=== PATIENT | male | born 1935 | race Caucasian/White ===

== ENCOUNTER 2016-11-18 16:13 | Emergency (ER) | payer OTHER ==
[2016-11-18 16:30] VITALS: BMI 24.3
[2016-11-18 17:01] LABS: BASOPHILS % (AUTO) 0.8 % (0.0-3.0); EOSINOPHILS # (AUTO) 0.1 K/ul (0.0-0.7); EOSINOPHILS % (AUTO) 1.9 % (0.0-7.0); HEMOGLOBIN 12.3 g/dl (14.0-18.0); IMMATURE GRANULOCYTE % (AUTO) 1.5 % (0.0-5.0); LYMPHOCYTES # (AUTO) 0.1 K/uL (0.60-3.4); LYMPHOCYTES % (AUTO) 3.4 (10.0-50.0); MEAN CORPUSCULAR HEMOGLOBIN 34.6 pg (27.0-31.0); MEAN CORPUSCULAR HGB CONC 35.1 (31.8-35.4); MEAN CORPUSCULAR VOLUME 98.6 fl (80.0-94.0); MONOCYTES % (AUTO) 0.4 (0-10); NEUTROPHILS # (AUTO) 2.4 K/ul (2.0-6.9); PLATELET COUNT 152 10^3/uL (140-440); RED BLOOD COUNT 3.55 10^6/ul (4.70-6.10); WHITE BLOOD COUNT 2.62 K/ul (4.2-10.2)
[2016-11-18 17:23] LABS: ALBUMIN 3.8 g/dL (3.4-5.0); ALBUMIN/GLOBULIN RATIO 1.23; ANION GAP 16.2; BILIRUBIN,TOTAL 1.19 mg/dL (0.00-1.20); BUN/CREATININE RATIO 14.13; CALCIUM 9.3 mg/dL (8.2-10.2); CREATININE 0.92 mg/dL (0.60-1.10); POTASSIUM 4.2 mmol/L (3.5-5.1); TOTAL PROTEIN 6.9 g/dL (5.8-8.1)
[2016-11-18 17:30] LABS: TROPONIN I 0.046 ng/ml (0.0000-0.4000)
[2016-11-18] MEDS ORDERED: URO-JET MUCOUSMEMB STA (17:30)
--- NOTE | 2016-11-18 17:55 | CT ---
EXAM: CT chest without contrast HISTORY: Cough TECHNIQUE: Multi-slice transaxial helical. Coronal and sagital reformations were performed. COMPARISON: None FINDINGS: The heart is normal in size. Coronary artery calcifications are present. The ascending aorta measu res up to 37 mm in diameter. Calcified plaques are present within the thoracic aorta. No evidence of mediastinal adenopathy is seen. Visualized thyroid appears unremarkable. There is no axillary adenopathy. Please see same day ab[facility] report for abdominal findings. Old anterior right-sided rib fractures are present. There is b ridging anterior osteophytosis of the thoracic spine. Minimal compression changes of T4 and T12 is present. No evidence of listhesis. Bibasilar dependent atelectasis is present. Right lower lobe calcified granuloma is present. Right upper lobe calcified granuloma is present. No evidence of focal airspace opacity, pleural effusion , or pneumothorax. IMPRESSION: 1. No acute cardiopulmonary findings. No evidence of pneumonia. 2. Bibasilar dependent atelectasis. 3. Atherosclerosis including coronary disease. 4. 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 5. Minimal compression deformities of T4 and T12.
--- NOTE | 2016-11-18 18:01 | CT ---
EXAM: Noncontrast CT of the abdomen and pelvis HISTORY: Pain COMPARISON: None available TECHNIQUE: Noncontrast CT of the abdomen and pelvis FINDINGS: The artifacts extend through the upper abdomen due to imaging with the patient's arms over his abdom en. Noncontrast technique limits evaluation of abdominal viscera. The liver and spleen appear gross ly within normal limits. The gallbladder is contracted. The unenhanced adrenals are unremarkable. There is mild bilateral perinephric fat stranding. The unenhanced pancreas is grossly unremarkable. No renal, ureteral or bladder calculi are identified. There is minimal distal left ureteral dilati on. No abnormal small bowel dilation is seen. Diverticulosis seen without evidence of diverticulitis. T he appendix is not identified. No pericecal inflammatory changes are seen. Several bladder diverticuli are seen. There is mild bladder wall thickening. Prostate calcification s are present. Extensive atherosclerotic calcifications are present including the coronary arteries . No free air or free fluid is seen. There is mild to moderate multilevel degenerative disc disease and multilevel facet arthropathy which is up to severe at L4-5. There is 2 mm of anterolisthesis at L4-5. There is mild remote appearing anterior wedging of the T11 vertebral body. Please see chest CT report for chest findings. IMPRESSION: No evidence of urolithiasis. Mild bilateral perinephric fat stranding which could be chronic or indicative of inflammation/infect ion. Diverticulosis without evidence of diverticulitis. Mild bladder wall thickening which could be chronic. Cystitis would be difficult to completely exclu de. Multiple bladder diverticuli. Extensive atherosclerosis including the coronary arteries. Noncontrast exam.
[2016-11-18 18:23] LABS: BILIRUBIN,URINE Negative (NEGATIVE); KETONES,URINE Negative (NEGATIVE); LEUKOCYTE ESTERASE ,URINE 3+ (NEGATIVE); NITRITE,URINE Negative (NEGATIVE); PROTEIN,URINE Trace (NEGATIVE); URINE, BLOOD Trace-lysed (NEGATIVE)
--- NOTE | 2016-11-18 18:34 | ED.PDOC ---
General Mode of Arrival: Wheelchair Information Source: Patient <PAVITHRA LUJAN Filed: 11/18/16 18:32> <JADA HUITRON - Last Filed: 11/18/16 18:47> ED Provider: Dr. JADA SANCHEZ-MANASA Chief Complaint: Urinary Problem Primary Care Provider: JADA SANCHEZ Miscellaneous Complaint Exam - Febrile Illness/Adult Complaint/Exam Onset/Duration: 2 days Symptoms Are: Still present Timing: Intermittent Initial Severity: Mild Current Severity: Mild Aggravating: Reports: Other (prostate cancer ) Associated Signs and Symptoms: Denies: Headache, Fluid intake, Short of air, Cough, Sore throat, Nausea, Vomiting, Chills, Diaphoresis, Dysuria, Arthralgia, Stiff neck, Myalgia, Rash, Altered mental status Pseudomonas Risk Factors: Reports: None Serious Bacterial Infection Risk Factors: Reports: None Current Antibiotic Use: No <PAVITHRA LUJAN Filed: 11/18/16 18:32> Review of Systems - Review Of Systems Constitutional: Reports: Fever, Malaise Eyes: Reports: No symptoms Ears, Nose, Mouth, Throat: Reports: No symptoms Respiratory: Reports: No symptoms Cardiac: Reports: No symptoms GI: Reports: No symptoms : Reports: No symptoms Musculoskeletal: Reports: No symptoms Skin: Reports: No symptoms Neurological: Reports: No symptoms Endocrine: Reports: No symptoms Hematologic/Lymphatic: Reports: No symptoms All Other Systems: Reviewed and Negative <PAVITHRA LUJAN Filed: 11/18/16 18:32> Past Medical History - Social History Smoking Status: Never smoker Hx Substance Use: No Alcohol Screening: None <PAVITHRA LUJAN Filed: 11/18/16 18:32> Physical Exam - Physical Exam Appearance: Ill-appearing Ill-appearing: Moderate Pain Distress: Moderate Eyes: SANIYA, EOMI, Conjunctiva clear ENT: Dry mucosa Respiratory: Airway patent, Breath sounds clear, Breath sounds equal, Respirations nonlabored Cardiovascular: RRR, Pulses normal, No rub, No murmur GI/: Soft, Nontender, No masses, Bowel sounds normal, No Organomegaly Musculoskeletal: Normal strength, ROM intact, No edema, No calf tenderness Skin: Warm, Dry, Normal color Neurological: Sensation intact, Motor intact, Reflexes intact, Cranial nerves intact, Alert, Oriented Psychiatric: Affect appropriate, Mood appropriate <PAVITHRA LUJAN - Last Filed: 11/18/16 18:32> Critical Care Note - Critical Care Note Total Time (mins): 0 <PAVITHRA LUJAN - Last Filed: 11/18/16 18:32> Course - Course Hematology/Chemistry: 11/18/16 16:50 11/18/16 16:50 <PAVITHRA LUJAN - Last Filed: 11/18/16 18:32> - Course Hematology/Chemistry: 11/18/16 16:50 11/18/16 16:50 <JADA HUITRON - Last Filed: 11/18/16 18:47> - Course Orders, Labs, Meds: Lab Review 11/18/16 11/18/16 16:50 18:15 WBC 2.62 L RBC 3.55 L Hgb 12.3 L Hct 35.0 L MCV 98.6 H MCH 34.6 H MCHC 35.1 RDW Coeff of Red 12.2 Plt Count 152 Immature Gran % (Auto) 1.5 Neut % (Auto) 92.0 Lymph % (Auto) 3.4 L [place] % (Auto) 0.4 Eos % (Auto) 1.9 Baso % (Auto) 0.8 Immature Gran # (Auto) 0.0 Neut # 2.4 Lymph # 0.1 L [place] # 0.0 L Eos # 0.1 Baso # 0.0 Sodium 134 L Potassium 4.2 Chloride 98 Carbon Dioxide 24 Anion Gap 16.2 BUN 13 Creatinine 0.92 Estimated GFR (MDRD) 79.00 BUN/Creatinine Ratio 14.13 Glucose 110 Lactic Acid 24.7 H Calcium 9.3 Total Bilirubin 1.19 AST 19 ALT 13 Alkaline Phosphatase 81 Total Creatine Kinase 99 Troponin I 0.0460 Total Protein 6.9 Albumin 3.8 Globulin 3.1 Albumin/Globulin Ratio 1.23 Procalcitonin 3.37 Urine Color Yellow Urine Clarity Clear Urine pH 7.0 Ur Specific [place] 1.015 Urine Protein Trace Urine Glucose (UA) Negative Urine Ketones Negative Urine Blood Trace-lysed Urine Nitrite Negative Urine Bilirubin Negative Urine Urobilinogen 0.2 Ur Leukocyte Esterase 3+ Urine Microscopic RBC 2-5 Urine Microscopic WBC 30-50 Ur Squamous Epith Cells Not present Urine Bacteria 2+ Urine Yeast Trace Orders Category Date Time Status EKG-(ED ONLY) Stat CARDIO 11/18/16 16:44 Completed Lora [ED CATHETER INSERTION AND CARE] .ONCE EMERGENCY 11/18/16 17:30 Active BLOOD CULTURE Stat LAB 11/18/16 16:50 Received CBC W/ AUTO DIFF Stat LAB 11/18/16 16:50 Completed COMPREHENSIVE METABOLIC PANEL Stat LAB 11/18/16 16:50 Completed CREATINE KINASE Stat LAB 11/18/16 16:50 Completed EHRLICHIA DNA, PCR Stat LAB 11/18/16 16:50 Received LACTIC ACID Stat LAB 11/18/16 16:50 Completed LYME, WESTERN BLOT, SERUM Stat LAB 11/18/16 16:50 Received PROCALCITONIN Stat LAB 11/18/16 16:50 Completed MATIAS MTN SPOTTED FEVER,IgM Stat LAB 11/18/16 16:50 Received TROPONIN I Stat LAB 11/18/16 16:50 Completed URINALYSIS C & S IF INDICATED Stat LAB 11/18/16 18:15 Completed URINE CULTURE Stat LAB 11/18/16 18:15 Received Lidocaine HCl [Uro-Jet] MEDS 11/18/16 17:30 Discontinued 10 ml [id number] ONCE STA CT ABDOMEN/PELVIS WO CONTRAST Stat RADS 11/18/16 16:[address] CHEST W/O CONTRAST Stat RADS 11/18/16 16:43 Completed Medications Discontinued Medications Generic Name Dose Route Start Last Admin Trade Name Freq PRN Reason Stop Dose Admin Lidocaine HCl 10 ml 11/18/16 17:30 11/18/16 18:21 Uro-Jet [id number] 11/18/16 17:31 10 ml ONCE STA Administration Vital Signs: Temp Pulse Resp BP Pulse Ox 11/18/16 16:14 102.8 F H 125 H 20 120/66 91 L Departure - Departure Time of Disposition: 19:00 Pt referred to PMD for follow-up: Yes Disposition Discussed With: Patient <PAVITHRA LUJAN - Last Filed: 11/18/16 18:32> - Departure Transfer Form Completed: Yes Disposition Discussed With: Patient, Family <JADA HUITRON - Last Filed: 11/18/16 18:47> - Departure Disposition: TSF SHORT-TRM HOSP Discharge Problem: Weakness Fever Qualifiers: Fever type: unspecified Qualifier Code: (R50.9) Fever, unspecified Neutropenia Qualifiers: Neutropenia type: unspecified Qualifier Code: (D70.9) Neutropenia, unspecified Anemia Qualifiers: Anemia type: unspecified type Qualifier Code: (D64.9) Anemia, unspecified Instructions: Neutropenia (ED), Anemia (ED) Condition: Fair Additional Instructions: Please call your Family Physician as soon as possible to schedule a follow-up appointment. Allergies/Adverse Reactions: Allergies Penicillins Adverse Reaction (Unverified 12/15/14 11:09) Home Medications: Ambulatory Orders Calcium Carbonate [Calcium] 1,200 mg PO DAILY 12/16/14 Enzalutamide [Xtandi] 160 mg PO DAILY 12/16/14 Multivit-Min/FA/Lycopene/Lut [Centrum Silver Tablet] 1 each PO DAILY 12/16/14 Vit A/Vit C/Vit E/Zinc/Copper [Preservision Areds Tablet] 1 each PO DAILY Memantine HCl [Namenda] 10 mg PO BID 11/18/16 Tamsulosin HCl [Flomax] 0.4 mg PO DAILY 11/18/16
[2016-11-18 18:36] LABS: ADD URINE MICROSCOPIC YES
[2016-11-18 18:37] LABS: BACTERIA,URINE 2+ (NOT PRESENT)
[2016-11-18] MEDS ORDERED: DOXY-100 100 MG in SODIUM CHLORIDE 250 ML IV STA (18:48)
[2016-11-18 18:55] VITALS: BP 117/63; TEMP 100.8
[2016-11-22 13:13] LABS: IGG P18 AB Absent (.); IGG P23 AB Absent (.); IGG P28 AB Absent (.); IGG P30 AB Absent (.); IGG P39 AB Absent (.); IGG P41 AB Present (.); IGG P45 AB Absent (.); IGG P58 AB Absent (.); IGG P66 AB Present (.); IGG P93 AB Absent (.); IGM P39 AB Absent (.); IGM P41 AB Absent (.)
[2016-11-23 07:16] LABS: LYME IGG WB INTERP Negative (.); LYME IGM WB INTERP Negative (.)
== END 2016-11-18 20:21 | disposition short-term general hospital (02) ==
LOC: ED 16:13
DX: D70.9 Neutropenia, unspecified (principal); R50.9 Fever, unspecified; R53.1 Weakness; D64.9 Anemia, unspecified; Z79.899 Other long term (current) drug therapy
CPT/HCPCS: 36415; 80053; 81001; 82550; 83605; 84145; 84484; 85025; 86617; 86757; 87040; 87070; 87086; 87186; 87798; 93005; 93010; 96361; 96365; 96366; 99285

== ENCOUNTER 2016-11-18 20:18 | Outpatient (CLI) ==
[2016-11-18 16:30] VITALS: BMI 24.3
== END 2016-11-18 20:19 | disposition home or self-care (01) ==
LOC: AMBL 20:18
PROVIDERS: ATTEND Family Medicine
DX: G93.40 Encephalopathy, unspecified (principal); R50.9 Fever, unspecified; T14.8 Other injury of unspecified body region; W57.XXXA Bitten or stung by nonvenomous insect and other nonvenomous arthropods, initial encounter